=== PATIENT | female | born 1995 | race Two or more races ===

== ENCOUNTER → 2017-11-20 | Outpatient (CLI) | END | disposition home or self-care (01) ==

== ENCOUNTER 2018-04-25 15:31 | Emergency (ER) | payer SELFPAY ==
[~2018-04-25] VITALS: Wt 69.3 kg
[2018-04-25 15:48] VITALS: BP 141/89; PULSE 83; RESP 19
--- NOTE | 2018-04-25 17:41 | ERD ---
ER Documentation Chief Complaint Chief Complaint bib self, cc: cwp for 1 week, no radiating quality, no sob HPI 23-year-old female, previously healthy, presents to the emergency department, complaining of 1 week with anterior chest wall tenderness, constant, reproduced by palpation and expansion of the chest wall. The pain is 3/10. No palpitations, no shortness of breath, no dizziness. No medications taken at this time. No history of trauma. The patient, however, states that she has been under a lot of stress. ROS All systems reviewed and are negative except as per history of present illness. Medications Home Meds Active Scripts Ibuprofen* (Motrin*) 400 Mg Tab, 400 MG PO Q8, #12 TAB Prov:HANNAH VOGEL MD 04/25/18 Acetaminophen* (Tylenol*) 325 Mg Tablet, 2 TAB PO Q8 PRN for PAIN AND OR ELEVATED TEMP, #20 TAB Prov:HANNAH VOGEL MD 04/25/18 Allergies Allergies: Coded Allergies: gabapentin (Verified Allergy, Unknown, 04/25/18) PMhx/Soc Medical and Surgical Hx: pt denies Surgical Hx Hx Miscellaneous Medical Probl: Yes (Carpal Tunnel Syndrome) Hx Alcohol Use: No Hx Substance Use: No Hx Tobacco Use: No Smoking Status: Never smoker FmHx Family History: No diabetes, No coronary disease Physical Exam Vitals Physical Exam Const: No acute distress Head: Atraumatic Eyes: Normal Conjunctiva ENT: Normal External Ears, Nose and Mouth. Neck: Full range of motion. No meningismus. Resp: Tenderness to palpation of the anterior chest wall area clear to au scultation bilaterally Cardio: Regular rate and rhythm, no murmurs Abd: Soft, non tender, non distended. Normal bowel sounds Skin: No petechiae or rashes Back: No midline or flank tenderness Ext: No cyanosis, or edema Neur: Awake and alert Psych: Normal Mood and Affect Results 24 hrs EKG read by me: Rate/Rhythm: Regular rate and rhythm at a rate of 82 Intervals: Normal No acute ST changes. No T wave inversion Impression: No evidence of acute ischemia or arrhythmia Procedures/MDM Vital signs stable. Differential diagnosis include but not limited to: URI, PNA, chostochondritis, GERD, musculoskeletal injury, less likely PE, pericarditis, endocarditis. Pertinent Data: 12 Lead ECG: Sinus rhythm, no ST changes, normal T wave, normal intervals Physical examination and clinical presentation consistent most likely with atypical chest pain most likely secondary to costochondritis. During the ED course the patient remained stable, no new complaints. Results and clinical impression discussed with patient who agrees with management. The patient is stable to be treated outpatient and will be dis charged home, some side effects of prescribed medications (headache, rash, nausea, vomiting, diarrhea, drowsiness, habituation, bleeding, hypertension, interactions with other medications) were reviewed. The patient was instructed to follow up with the primary care provider in the next 48h. If symptoms persist, worsen or new symptoms develop, then patient should return to the ED immediately. Instructions explained and given directly by me to the patient with acknowledgment and demonstrated understanding. Disclaimer: Inadvertent spelling and grammatical errors are likely due to EHR/dictation software use and do not reflect on the overall quality of patient care. Also, please note that the electronic time recorded on this note does not necessarily reflect the actual time of the patient encounter. Departure Diagnosis: Primary Impression: Chest wall pain Additional Impression: Costochondritis, acute Condition: Stable Patient Instructions: Chest Wall Pain, Costochondritis Additional Instructions: Thank you very much for allowing us to participate in your care. Your health and safety is our top priority at [facility]. Call your primary care doctor TOMORROW for an appointment during the next 2-4 days and bring all the information and medications prescribed. Have prescriptions filled and follow precisely the directions on the label. If the symptoms get worse and your provider is unavailable, return to the Emergency Department immediately. HANNAH VOGEL MD Apr 25, 2018 17:41
[2018-04-25] MEDS ORDERED: IBUP-1561 PO (17:43)
[2018-04-25] MEDS ORDERED: ACET325T33 PO (17:43)
== END 2018-04-25 18:01 | disposition home or self-care (01) ==
LOC: FTE 15:31
DX: R07.89 Other chest pain (principal)
CPT/HCPCS: 93005